=== PATIENT | male | born 1950 | race Asian ===

== ENCOUNTER 2022-08-26 13:35 | Emergency (ER) | payer MEDICAID, MEDICARE ==
[2022-08-26] MEDS ORDERED: Ondansetron 4 MG Tab.DIS PO STA (13:58)
[2022-08-26] MEDS ORDERED: Acetaminophen 500 MG Tab PO ONE (14:20)
[2022-08-26 14:23] LABS: ESTIMATED GFR 33 mL/min (>60)
[2022-08-26] MEDS ORDERED: Sodium Chloride 0.9% 10 ML Syringe FLUSH PRN (14:24)
[2022-08-26] MEDS ORDERED: Sodium Chloride 0.9% 1,000 ML IV SCH (14:30)
[2022-08-26 14:59] LABS: CORONAVIRUS COVID-19 NAA NEGATIVE (NEGATIVE)
== END 2022-08-26 15:48 | disposition home or self-care (01) ==
LOC: FB.ED 13:35
DX: E86.0 Dehydration (principal); J10.1 Influenza due to other identified influenza virus with other respiratory manifestations; N17.9 Acute kidney failure, unspecified; E11.9 Type 2 diabetes mellitus without complications; I10 Essential (primary) hypertension; E78.5 Hyperlipidemia, unspecified; E03.9 Hypothyroidism, unspecified; Z79.84 Long term (current) use of oral hypoglycemic drugs; Z79.899 Other long term (current) drug therapy; Z20.822 Contact with and (suspected) exposure to COVID-19
CPT/HCPCS: 0241U; 36415; 80048; 85025; 96360; 99283-25; A9270-GY; J3490; J7030; Q0162

== ENCOUNTER 2022-11-09 06:59 | Day surgery (SDC) | payer MEDICARE ==
[~2022-11-09 06:59] MED LIST: Lactated Ringers 1,000 ML IV SCH; Sodium Chloride 0.9% 10 ML Syringe FLUSH PRN
[2022-11-09] MEDS ORDERED: Midazolam 1 MG/ML 2 ML SDV IV ONE (07:00)
[2022-11-09] MEDS ORDERED: fentaNYL 100 MCG/2 ML SDV IV ONE (07:00)
[2022-11-09] MEDS ORDERED: acetaZOLAMIDE 500 MG Cap.ER PO ONE (09:15)
== END 2022-11-09 09:45 | disposition home or self-care (01) ==
LOC: FB.SDS 06:59 → MERGE 09:00 → FB.SDS 09:45
PROVIDERS: ATTEND Ophthalmology
DX: E11.36 Type 2 diabetes mellitus with diabetic cataract (principal); H40.1112 Primary open-angle glaucoma, right eye, moderate stage; H40.1121 Primary open-angle glaucoma, left eye, mild stage; H10.13 Acute atopic conjunctivitis, bilateral; H04.123 Dry eye syndrome of bilateral lacrimal glands; H52.13 Myopia, bilateral; H52.223 Regular astigmatism, bilateral; H25.813 Combined forms of age-related cataract, bilateral; E11.69 Type 2 diabetes mellitus with other specified complication; E78.5 Hyperlipidemia, unspecified; I12.9 Hypertensive chronic kidney disease with stage 1 through stage 4 chronic kidney disease, or unspecified chronic kidney disease; E11.22 Type 2 diabetes mellitus with diabetic chronic kidney disease; N18.32 Chronic kidney disease, stage 3b; E03.9 Hypothyroidism, unspecified; Z79.899 Other long term (current) drug therapy; Z79.890 Hormone replacement therapy
CPT/HCPCS: 00142; 82947; A9270-GY; C1783; J2250; J3010; J7120; V2632

== ENCOUNTER 2022-11-23 06:47 | Day surgery (SDC) | payer MEDICARE ==
[2022-11-23] MEDS ORDERED: Midazolam 1 MG/ML 2 ML SDV IV ONE (06:48)
[2022-11-23] MEDS ORDERED: fentaNYL 100 MCG/2 ML SDV IV ONE (06:48)
[2022-11-23] MEDS: Sodium Chloride 0.9% 10 ML Syringe FLUSH PRN (07:30)
[2022-11-23] MEDS: Lactated Ringers 1,000 ML IV PRN (07:30)
[2022-11-23] MEDS: acetaZOLAMIDE 500 MG Cap.ER PO ONE (09:30)
== END 2022-11-23 09:40 | disposition home or self-care (01) ==
LOC: FB.SDS 06:47
PROVIDERS: ATTEND Ophthalmology
DX: H26.9 Unspecified cataract (principal); H40.1123 Primary open-angle glaucoma, left eye, severe stage; E03.9 Hypothyroidism, unspecified; I10 Essential (primary) hypertension; E78.5 Hyperlipidemia, unspecified; E11.9 Type 2 diabetes mellitus without complications; Z79.890 Hormone replacement therapy; Z79.899 Other long term (current) drug therapy; Z87.891 Personal history of nicotine dependence
CPT/HCPCS: 00142; 66991; 82947; A9270; C1783; J2250; J3010; J3490; J7120; V2632

== ENCOUNTER 2025-01-27 13:08 | Emergency (ER) | payer MEDICAID, MEDICARE | END 2025-01-27 14:10 | disposition home or self-care (01) | LOC: FB.ED 13:08 | DX: S83.92XA Sprain of unspecified site of left knee, initial encounter (principal); I10 Essential (primary) hypertension; E78.00 Pure hypercholesterolemia, unspecified; E11.9 Type 2 diabetes mellitus without complications; E03.9 Hypothyroidism, unspecified; Z79.899 Other long term (current) drug therapy; Z79.82 Long term (current) use of aspirin; Z79.890 Hormone replacement therapy; Z79.84 Long term (current) use of oral hypoglycemic drugs; X58.XXXA Exposure to other specified factors, initial encounter; Y93.89 Activity, other specified | CPT/HCPCS: 73562-LT; 99283 ==